=== PATIENT | female | born 1985 | race Asian ===

== ENCOUNTER 2018-09-30 09:39 | Emergency (ER) | payer BC ==
[~2018-09-30] VITALS: Ht 167.6 cm; Wt 97.5 kg
[2018-09-30] MEDS ORDERED: COZAAR50 MG PO (10:16)
[2018-09-30] MEDS ORDERED: LAMICTAL100 MG PO (10:16)
[2018-09-30] MEDS ORDERED: GLUCOPHAGE1000 MG PO (10:16)
[2018-09-30] MEDS ORDERED: REMERON15 MG PO (10:16)
[2018-09-30] MEDS ORDERED: HUMALOG100 UNIT/1 SUB-Q (10:17)
[2018-09-30] MEDS ORDERED: CRESTOR40 MG NG (10:17)
[2018-09-30] MEDS ORDERED: TOUJEO MAX300 UNIT/1 SQ (10:17)
[2018-09-30] MEDS ORDERED: TESSALON PERLE100 MG PO (10:58)
[2018-09-30] MEDS ORDERED: VENTOLIN HFA18 GM INH (10:58)
[2018-09-30] MEDS ORDERED: DOXYCYCLINE HY100 MG PO (10:58)
[2018-09-30] MEDS ORDERED: G TUSSIN AC LI473 ML PO (10:58)
== END 2018-09-30 11:14 | disposition home or self-care (01) ==
LOC: ED 09:39
DX: J20.9 Acute bronchitis, unspecified (principal); E10.9 Type 1 diabetes mellitus without complications; Z91.09 Other allergy status, other than to drugs and biological substances; Z88.5 Allergy status to narcotic agent; Z79.84 Long term (current) use of oral hypoglycemic drugs; Z79.899 Other long term (current) drug therapy; Z87.891 Personal history of nicotine dependence
CPT/HCPCS: 71045; 87502; 94640; 99283-25